=== PATIENT | male | born 1990 | race Caucasian/White ===

== ENCOUNTER 2016-10-12 06:12 | Emergency (ER) | payer BC ==
[~2016-10-12] VITALS: Ht 175.3 cm; Wt 93.2 kg
[~2016-10-12 06:12] MED LIST: APRISO0.375 GM PO; AZULFIDINE500 MG/TAB PO; BACTRIM 400 MG-1 TAB; CANASA 1000MG1000 MG RC; CIPRO 500MG TA500 MG PO; EFFEXOR-XR150 MG PO; MINOCYCLIN100 MG/CAP PO; NAPROSYN500 MG PO; XANAX 0.5MG0.5 MG PO
[2016-10-12 06:14] VITALS: TEMP 97.5
[2016-10-12] MEDS ORDERED: LIALDA 1.2 GM1.2 GM PO (06:44)
[2016-10-12 07:41] LABS: BASO % 0.6 % (0.0-2.0); EOS # 0.1 (0.0-0.7); EOS % 1.7 % (0-4.0); GRAN # 4.3 (1.4-6.5); GRAN % 60.8 % (42.2-75.2); LYMPH # 1.8 (1.2-3.4); LYMPH % 26.1 % (20.0-51.0); MEAN CELL VOLUME 81 fl (80.0-100.0); MEAN CORPUSCULAR HGB CONC 32 g/dl (33.0-37.0); MEAN PLATELET VOLUME 10.1 fl (7.4-10.4); MONO # 0.7 (0.1-0.6); MONO % 10.4 % (1.7-9.3); PLATELET COUNT 313 K/mm3 (130-400); RED BLOOD COUNT 4.49 M/mm3 (4.20-5.60); REDCELL DISTRIBUTION WIDTH-CV 12.8 % (11.5-14.5)
[2016-10-12 07:46] LABS: HEMATOCRIT 36.4 % (42.0-52.0); HEMOGLOBIN 11.7 g/dl (13.5-18.0); MEAN CORPUSCULAR HEMOGLOBIN 26 pg (27.0-31.0)
[2016-10-12 08:02] LABS: ADJUSTED CALCIUM 8.9 mg/dL (8.4-10.2); ALBUMIN 4.2 gm/dL (3.5-5.0); BILIRUBIN,TOTAL 0.6 mg/dL (0.0-1.0); C-REACTIVE PROTEIN 1.2 mg/dL (0.0-0.9); CALCIUM 9.1 mg/dL (8.4-10.2); CREATININE, serum 1.02 mg/dL (0.66-1.25); TOTAL PROTEIN 7.2 gm/dL (6.4-8.2)
[2016-10-12] MEDS ORDERED: PREDNISONE20 MG PO (08:07)
[2016-10-12] MEDS ORDERED: PREDNISONE10 MG PO (08:24)
[2016-10-12 08:36] LABS: PH 5 (5-8); SQUAMOUS EPITHELIAL 0-2 /hpf; URINE APPEARANCE Clear; URINE BACTERIA None Seen /hpf; URINE BILIRUBIN Negative (NEGATIVE); URINE BLOOD Negative (NEGATIVE); URINE COLOR Yellow; URINE GLUCOSE Negative (NEGATIVE); URINE KETONE Negative (NEGATIVE); URINE RBC 0-2 /hpf; URINE UROBILINOGEN Negative (NEGATIVE); URINE WBC None Seen /hpf
[2016-10-12 09:22] VITALS: BP 115/63; PULSE 73
== END 2016-10-12 09:23 | disposition home or self-care (01) ==
LOC: COL.ER 06:12
PROVIDERS: Family Medicine
DX: K51.911 Ulcerative colitis, unspecified with rectal bleeding (principal); D64.9 Anemia, unspecified
CPT/HCPCS: J7030; J7512; Q9967